=== PATIENT | female | born 1965 | race Caucasian/White ===

== ENCOUNTER 2022-01-24 07:57 | Day surgery (SDC) | payer OTHER ==
[~2022-01-24] VITALS: Ht 162.6 cm; Wt 88.5 kg
[~2022-01-24 07:57] MED LIST: COQ1050 MG PO; HYDCHL25 PO; MONT10T PO; VENL25 PO; ZYRTEC10 M2 PO
--- NOTE | 2022-01-24 13:20 | NUR ---
PATIENT ALERT AND CHATTY. FRIENDS AND FAMILY AT BESIDE. TOLERATING PO INTAKE WELL. PAIN MED AND ICE PACK EFFECTIVE FOR PAIN CONTROL Patient up to Ambulate independently. Gait steady. Discharge instructions reviewed with patient. Patient verbalizes understanding. Copy given to patient to take home. Dressing to procedure site clean, dry, intact with no visible drainage, swelling, erythema or bruising noted. Discharged via wheelchair to private car for ride home W/ S/O AND FAMILY
== END 2022-01-24 22:39 | disposition home or self-care (01) ==
LOC: ORSCMMR 07:57 → NM 09:00 → ORSCMMR 09:00
PROVIDERS: Surgery
PROC: 0HBU0ZZ Excision of Left Breast, Open Approach (ICD-10-PCS; principal; 2022-01-24 10:00)
PROC: 07B60ZX Excision of Left Axillary Lymphatic, Open Approach, Diagnostic (ICD-10-PCS; principal; 2022-01-24 10:00)
DX: C50.112 Malignant neoplasm of central portion of left female breast (principal); D36.0 Benign neoplasm of lymph nodes; I10 Essential (primary) hypertension; F17.210 Nicotine dependence, cigarettes, uncomplicated; E66.9 Obesity, unspecified; Z68.33 Body mass index [BMI] 33.0-33.9, adult; J45.909 Unspecified asthma, uncomplicated; F32.A Depression, unspecified; Z17.0 Estrogen receptor positive status [ER+]; E78.5 Hyperlipidemia, unspecified; Z79.899 Other long term (current) drug therapy
CPT/HCPCS: 38792; 88307; 88342; A9270; A9520; J0690; J1885; J2250; J2704; J3010; J7120; Q9968